=== PATIENT | female | born 1950 ===

== ENCOUNTER 2016-11-08 08:16 | Day surgery (SDC) | payer MEDICARE ==
[2016-11-08] MEDS ORDERED: Propofol 10 mg/ml Inj (20 ML) ONE (08:57)
[2016-11-08] MEDS ORDERED: Lactated Ringer's 500 ML IV ONE (09:31)
[2016-11-08 10:17] VITALS: BP 156/80; PULSE 67; RESP 17; TEMP 97.5; O2SAT 98
== END 2016-11-08 11:23 | disposition home or self-care (01) ==
LOC: H.ENDO 08:16
PROVIDERS: ATTEND Internal Medicine Gastroenterology
DX: Z12.11 Encounter for screening for malignant neoplasm of colon (principal); K64.8 Other hemorrhoids
CPT/HCPCS: 45378; J2001; J2704; J3010; J7120